=== PATIENT | female | born 1970 | race African-American/Black ===

== ENCOUNTER 2022-07-08 03:10 | Emergency (ER) | payer OTHER ==
[2022-07-08 04:54] LABS: BASOPHIL 0.7 % (0-2); EOSINOPHIL 2.7 % (0-5); HCT 39.3 % (37.0-47.0); HGB 12.4 g/dl (12.5-16.0); LYMPHOCYTE 11.5 % (15-48); MCH 31.2 pg (25.0-31.0); MCHC 31.6 g/dL (32.0-36.0); MONOCYTE 9.1 % (0-12); MPV 9.4 fL (6.0-9.5); NEUTROPHIL 75.6 % (41-80); NRBC 0; PLT 352 K/uL (150-400); RBC 3.97 M/uL (4.20-5.40); WBC 7.5 K/uL (4.0-10.5)
[2022-07-08 05:10] LABS: INR 1.05 (0.9-1.2); PROTHROMBIN TIME 13.4 SECONDS (11.9-13.9); PTT 28.2 SECONDS (24.9-34.6)
[2022-07-08 05:31] LABS: ALBUMIN 2.3 g/dL (3.4-5.0); BILIRUBIN - TOTAL 0.4 mg/dL (0.2-1.0); BUN/CREAT RATIO (CALC) 4.2 RATIO; CREATININE 17.66 mg/dL (0.51-0.95); GLOBULIN (CALCULATION) 4.4 g/dL; POTASSIUM 3.9 mmol/L (3.5-5.1); TOTAL PROTEIN 6.7 g/dL (6.4-8.2)
[2022-07-08] MEDS ORDERED: NORCO 5-325 TA1 EACH PO (06:11)
[2022-07-08] MEDS ORDERED: ONDANSETRON ODT4 MG PO (06:11)
[2022-07-08] MEDS ORDERED: SENNA PLUS 8.61 EACH PO (06:11)
[2022-07-08] MEDS ORDERED: MEDROL 4MG DOSEP4 MG PO (06:11)
[2022-07-08] MEDS ORDERED: PHENERGAN25 M1 PO (06:11)
== END 2022-07-08 06:43 | disposition home or self-care (01) ==
LOC: FER 03:10
PROVIDERS: Internal Medicine
DX: R53.81 Other malaise (principal); R53.83 Other fatigue; M54.50 Low back pain, unspecified; K59.00 Constipation, unspecified; U09.9 Post COVID-19 condition, unspecified; N18.6 End stage renal disease; Z99.2 Dependence on renal dialysis
CPT/HCPCS: 36415; 71250; 80053; 83605; 83690; 84145; 85025; 85610; 85730; 96372; J0696; J1100; J1170; J2550